=== PATIENT | female | born 1950 | race Caucasian/White ===

== ENCOUNTER 2022-03-06 16:00 | Inpatient (IN) | payer MEDICARE, OTHER ==
[~2022-03-06] VITALS: Ht 167.6 cm; Wt 127.6 kg
[2022-03-06 19:40] VITALS: BP 138/57
[2022-03-06] MEDS ORDERED: DEXTROSE 50% 25 GM / 50ML DISP.SYRIN. IV PRN (20:30)
[2022-03-06] MEDS ORDERED: diphenhydrAMINE 50 MG/ML VIAL IVP PRN (20:30)
[2022-03-06] MEDS ORDERED: ONDANSETRON PF 4 MG/2 ML VIAL. IVP PRN (20:30)
[2022-03-06] MEDS ORDERED: ACETAMINOPHEN 325 MG TABLET. PO PRN (20:30)
[2022-03-06] MEDS ORDERED: SENNOSIDES 8.6 MG TABLET PO PRN (20:30)
[2022-03-06] MEDS ORDERED: DOCUSATE SODIUM 100 MG CAPSULE. PO PRN (20:30)
[2022-03-06] MEDS ORDERED: diphenhydrAMINE HCL 25 MG CAPSULE PO PRN ×2 (20:30)
[2022-03-06] MEDS ORDERED: ZOLPIDEM 5 MG TABLET. PO PRN (20:30)
[2022-03-06] MEDS ORDERED: LORazepam 0.5 MG TABLET PO PRN (20:30)
[2022-03-06] MEDS ORDERED: PROCHLORPERAZINE 10 MG/2 ML VIAL. IV PRN (20:30)
[2022-03-06] MEDS ORDERED: ENOXAPARIN 40 MG/0.4 ML SYRINGE. SQ SCH (21:00)
[2022-03-06] MEDS: guaiFENesin ORAL 200 MG/10 ML LIQUID. PO PRN (21:17)
[2022-03-06] MEDS: BENZONATATE 100 MG CAPSULE. PO SCH (21:17)
[2022-03-06 23:00] VITALS: BP 153/54
[2022-03-07 03:00] VITALS: BP 157/55
[2022-03-07] MEDS ORDERED: CRESTOR5 MG PO (06:32)
[2022-03-07] MEDS ORDERED: PARO40TA3 PO (06:32)
[2022-03-07] MEDS ORDERED: RIVA10TA PO (06:32)
[2022-03-07] MEDS ORDERED: GABA600T7 PO (06:32)
[2022-03-07] MEDS ORDERED: LEVO75TA5 PO (06:32)
[2022-03-07] MEDS ORDERED: ALLO300T PO (06:32)
[2022-03-07] MEDS ORDERED: PANT40TA77 PO (06:32)
[2022-03-07 07:00] VITALS: BP 126/39
[2022-03-07 07:34] LABS: CALCIUM 9.1 mg/dL (8.5-10.1); CREATININE 1.4 mg/dL (0.6-1.0); GFR 37.3; MAGNESIUM 2.1 mg/dL (1.8-2.4); PHOSPHORUS 4.7 mg/dL (2.6-4.7); POTASSIUM 3.6 mmol/L (3.5-5.1)
--- NOTE | 2022-03-07 08:17 | PDOC1 ---
History and Physical Date of Admission Date of Admission DATE: 03/07/22 TIME: 08:16 Identification/Chief Complaint Chief Complaint Sore throat, cough, shortness of breath Source Source: Chart review History of Present Illness History of Present Illness Patient is a 71-year-old female with past medical history COPD not on home oxygen, A. fib, hypothyroidism, who presents to the ED with complaints of sore throat, shortness of breath, fever, weakness for the past few days. Associated cough with productive sputum, and orthopnea. Symptoms worsened yesterday morning so she went to [facility] ER for further evaluation. Left the [facility] ED showed WBC 11.6, BUN 32, creatinine 1.3, BUN/creatinine ratio 25, proBNP 798, troponin 20. Chest x-ray showed mild left lung infiltrates but for evaluations of left lung base. She received broad-spectrum antibiotics and was transferred to [facility] for higher level of care. Here at [facility] she was febrile at 101.5 F and tachycardic. She was admitted for further medical management. Past Medical History Past Medical History COPD, A. fib, hypothyroidism, CHF Past Surgical History Past Surgical History Gastric bypass Past Surgical History: Cholecystectomy Family History Family History CHF, COPD Social History Smoke: Quit ALCOHOL: none Drugs: None Current Medications Current Medications Current Medications Benzonatate (Tessalon Perle) 100 mg [id number] PO Last administered on 03/06/22at 21:17; Start 03/06/22 at 21:00 Guaifenesin (Robitussin) 200 mg PRN Q4HRS PRN PO COUGH Last administered on 03/06/22at 21:17; Start 03/06/22 at 20:30 Sennosides (Senna) 17.2 mg PRN BID PRN PO CONSTIPATION; Start 03/06/22 at 20:30 Docusate Sodium (Colace) 100 mg PRN DAILY PRN PO HARD STOOLS; Start 03/06/22 at 20:30 Ondansetron HCl (Zofran) 4 mg PRN Q6HRS PRN IVP NAUSEA/VOMITING, 1st CHOICE; Start 03/06/22 at 20:30 Dextrose (Dextrose 50%-Water Syringe) 12.5 gm PRN Q15MIN PRN IV SEE COMMENTS; Start 03/06/22 at 20:30 Acetaminophen (Tylenol) 650 mg PRN Q4HRS PRN PO TEMP OVER 100.4F OR MILD PAIN Last administered on 03/07/22at 02:39; Start 03/06/22 at 20:30 Lorazepam (Ativan) 0.5 mg PRN Q6HRS PRN PO ANXIETY / AGITATION; Start 03/06/22 at 20:30 Lorazepam (Ativan Inj) 0.25 mg PRN Q4HRS PRN IV ANXIETY / AGITATION; Start 03/06/22 at 20:30 Prochlorperazine Edisylate (Compazine) 10 mg PRN Q6HRS PRN IV NAUSEA/VOMITING, 2nd CHOICE; Start 03/06/22 at 20:30 Diphenhydramine HCl (Benadryl) 25 mg PRN Q6HRS PRN IVP ITCHING; Start 03/06/22 at 20:30 Diphenhydramine HCl (Benadryl) 25 mg PRN Q6HRS PRN PO ITCHING; Start 03/06/22 at 20:30 Diphenhydramine HCl (Benadryl) 25 mg PRN QHS PRN PO INSOMNIA, 1st CHOICE; Start 03/06/22 at 20:30 Zolpidem Tartrate (Ambien) 2.5 mg PRN QHS PRN PO INSOMNIA, 2nd CHOICE; Start 03/06/22 at 20:30 Enoxaparin Sodium (Lovenox 40mg Syringe) 40 mg Q12H SQ Last administered on 03/06/22at 21:17; Start 03/06/22 at 21:00 Azithromycin 500 mg/Sodium Chloride 250 ml @ 250 mls/hr Q24H IV ; Start 03/07/22 at 16:00 Ceftriaxone Sodium (Rocephin) 1 gm Q24H IVP ; Start 03/07/22 at 15:00 Active Scripts Active Reported Crestor (Rosuvastatin Calcium) 5 Mg Tablet 4 Tab PO DAILY Paroxetine Hcl 40 Mg Tablet 1 Tab PO DAILY Gabapentin 600 Mg Tablet 600 Mg PO BID Levothyroxine Sodium 75 Mcg Tablet 1 Tab PO DAILY Pantoprazole Sodium (Pantoprazole Sodium) 40 Mg Tablet.dr 40 Mg PO DAILYAC Xarelto (Rivaroxaban) 10 Mg Tablet 1 Tab PO DAILY 7 Days Allopurinol 300 Mg Tablet 1 Tab PO DAILY Allergies Allergies: Coded Allergies: Iodinated Contrast Media (Verified Allergy, Intermediate, Unknown, 03/06/22) digoxin (Verified Allergy, Intermediate, 03/07/22) ROS Review of System GENERAL: Fever. No history of weight change. SKIN: No bruising, hair changes or rashes. EYES: No blurred, double or loss of vision. NOSE AND THROAT: Sore throat. No history of nosebleeds. HEART: Denies chest pain, denies palpitations. LUNGS: Productive cough, shortness of breath. Denies hemoptysis, wheezing. GASTROINTESTINAL: Denies nausea, vomiting, abdominal pain. GENITOURINARY: Denies dysuria, frequency, urgency, hematuria. NEUROLOGIC: Denies history of numbness, tingling, tremor or weakness. PSYCHIATRIC: Denies anxiety, denies depression. ENDOCRINE: No history of heat or cold intolerance, polyuria or polydipsia. EXTREMITIES: Denies muscle weakness, joint pain, pain on walking or stiffness. Physical Exam Physical Exam General: Alert, Oriented X3, Cooperative, mild distress. Morbidly obese. HEENT: PERRLA, EOMI Lungs: Tachypneic, bilateral expiratory wheezes Heart: RRR, no jug vein distention Cardiovascular: S1, S2 Abdomen: Normal bowel sounds, Soft, No tenderness Extremities: No clubbing, No cyanosis Skin: No rashes, No significant lesion Neuro: Normal speech, Normal tone, Sensation intact Psych/Mental Status: Mental status NL, Mood NL Vitals Vitals Vital Signs Date Time Temp Pulse Resp B/P (MAP) Pulse Ox O2 Delivery O2 Flow Rate FiO2 03/07/22 07:00 98.4 57 16 126/39 (68) 96 BiPAP/CPAP 98.4 Labs Labs Laboratory Tests Test 03/07/22 05:45 Sodium Level 138 mmol/L (136-145) Potassium Level 3.6 mmol/L (3.5-5.1) Chloride Level 100 mmol/L (98-107) Carbon Dioxide Level 26 mmol/L (21-32) Anion Gap 12 (6-14) Blood Urea Nitrogen 40 mg/dL (7-20) Creatinine 1.4 mg/dL (0.6-1.0) Estimated GFR (Cockcroft-Gault) 37.3 Glucose Level 106 mg/dL (70-99) Calcium Level 9.1 mg/dL (8.5-10.1) Phosphorus Level 4.7 mg/dL (2.6-4.7) Magnesium Level 2.1 mg/dL (1.8-2.4) Laboratory Tests Test 03/07/22 05:45 Sodium Level 138 mmol/L (136-145) Potassium Level 3.6 mmol/L (3.5-5.1) Chloride Level 100 mmol/L (98-107) Carbon Dioxide Level 26 mmol/L (21-32) Anion Gap 12 (6-14) Blood Urea Nitrogen 40 mg/dL (7-20) Creatinine 1.4 mg/dL (0.6-1.0) Estimated GFR (Cockcroft-Gault) 37.3 Glucose Level 106 mg/dL (70-99) Calcium Level 9.1 mg/dL (8.5-10.1) Phosphorus Level 4.7 mg/dL (2.6-4.7) Magnesium Level 2.1 mg/dL (1.8-2.4) Images Images PATIENT: HANG LINDSAY ACCOUNT: [id number] : 1950 LOCATION: ER AGE: 71 SEX: F EXAM STATUS: REG ER ORD. PHYSICIAN: NIRAJ MIRANDA REASON: tachycardia, SOB PROCEDURE: CHEST AP ONLY AP chest. HISTORY: Tachycardia, short of breath AP view was taken of the chest. Heart is upper normal in size. Abdomen obscures the lung bases. There is mild left lung infiltrate. Left lung base is poorly evaluated. PA and lateral views could be of benefit. IMPRESSION: 1. Mild left lung infiltrate. 2. Poor evaluation left lung base. VTE Prophylaxis Ordered VTE Prophylaxis Devices: No VTE Pharmacological Prophylaxi: Yes Assessment/Plan Assessment/Plan Sepsis Acute respiratory failure with hypoxia Acute COPD exacerbation Left-sided community-acquired pneumonia FLAVIO History atrial fibrillation History of hypothyroidism Plan: Continue treatment with Rocephin and azithromycin Duo nebs as needed IV Solu-Medrol, then transition to oral prednisone. Consider consult to pulmonology if her respiratory distress worsens Resume home medications FEN - Cardiac diet PPX - Xarelto FULL CODE/patient names her daughter (Emy Art) as surrogate decision-maker Dispo - inpatient for above Justifications for Admission Other Justification pneumonia, chf exacerbation SHAYNE GONZALEZ MD Mar 07, 2022 08:17
[2022-03-07] MEDS ORDERED: BENZOCAINE/MENTHOL LOZENGE. PO PRN (08:45)
[2022-03-07] MEDS ORDERED: methylPREDNISolone SOD SUCC PF 125 MG/2 ML VIAL. IV ONE (09:00)
[2022-03-07 10:23] LABS: BASO % 1 % (0-3); EOS # 0.1 x10^3/uL (0.0-0.7); EOS % 1 % (0-3); HEMATOCRIT 33.3 % (36.0-47.0); HEMOGLOBIN 10.7 g/dL (12.0-15.5); LYMPH # 1.3 x10^3/uL (1.0-4.8); LYMPH % 20 % (24-48); MEAN CORPUSCULAR HEMOGLOBIN 26 pg (25-35); MEAN CORPUSCULAR HGB CONC 32 g/dL (31-37); MEAN CORPUSCULAR VOLUME 80 fL (79-100); MONO # 0.6 x10^3/uL (0.0-1.1); MONO % 10 % (0-9); NEUT # 4.5 x10^3/uL (1.8-7.7); NEUT % 69 % (31-73); PLATELET COUNT 144 x10^3/uL (140-400); RED BLOOD COUNT 4.18 x10^6/uL (3.50-5.40); RED CELL DISTRIBUTION WIDTH 17.2 % (11.5-14.5); WHITE BLOOD COUNT 6.6 x10^3/uL (4.0-11.0)
[2022-03-07] MEDS: BENZONATATE 100 MG CAPSULE. PO SCH ×3 (10:30→20:29)
[2022-03-07] MEDS: GABAPENTIN 300 MG CAPSULE. PO SCH ×2 (10:30→20:29)
[2022-03-07 11:00] VITALS: BP 122/38
[2022-03-07 11:26] LABS: INFLUENZA A PATIENT NEGATIVE (NEGATIVE); INFLUENZA B PATIENT NEGATIVE (NEGATIVE)
[2022-03-07] MEDS: IPRATRPIUM/ALBUTEROL 0.5/2.5MG 3 ML NEBU. NEB SCH ×3 (12:23→20:00)
[2022-03-07 15:00] VITALS: BP 142/55
[2022-03-07] MEDS ORDERED: cefTRIAXone IV Push 1 GM VIAL. IVP SCH (15:00)
[2022-03-07] MEDS ORDERED: AZITHROMYCIN 500 MG in IV NORMAL SALINE 250ML 250 ML IV SCH (16:00)
[2022-03-07 19:00] VITALS: BP 148/62
[2022-03-07] MEDS: LACTOBACILLUS RHAMNOSUS GG 1 CAPSULE. PO SCH (20:29)
[2022-03-07] MEDS: guaiFENesin ORAL 200 MG/10 ML LIQUID. PO PRN (20:29)
[2022-03-07] MEDS ORDERED: PARoxetine 20 MG TABLET PO ONE (21:00)
[2022-03-07] MEDS ORDERED: ATORVASTATIN CALCIUM 40 MG TABLET. PO SCH (21:00)
[2022-03-07 23:00] VITALS: BP 188/70
[2022-03-08 03:00] VITALS: BP 155/63
[2022-03-08 07:00] VITALS: BP 170/60
[2022-03-08] MEDS: IPRATRPIUM/ALBUTEROL 0.5/2.5MG 3 ML NEBU. NEB SCH ×3 (08:54→15:24)
[2022-03-08] MEDS ORDERED: PARoxetine 20 MG TABLET PO SCH (09:00)
[2022-03-08] MEDS ORDERED: predniSONE 20 MG TABLET PO SCH (09:00)
[2022-03-08 09:01] LABS: BASO % 0 % (0-3); EOS % 0 % (0-3); HEMATOCRIT 34.8 % (36.0-47.0); HEMOGLOBIN 11.2 g/dL (12.0-15.5); LYMPH # 0.9 x10^3/uL (1.0-4.8); LYMPH % 9 % (24-48); MEAN CORPUSCULAR HEMOGLOBIN 26 pg (25-35); MEAN CORPUSCULAR HGB CONC 32 g/dL (31-37); MEAN CORPUSCULAR VOLUME 80 fL (79-100); MONO # 0.6 x10^3/uL (0.0-1.1); MONO % 6 % (0-9); NEUT # 8.6 x10^3/uL (1.8-7.7); NEUT % 86 % (31-73); PLATELET COUNT 187 x10^3/uL (140-400); RED BLOOD COUNT 4.37 x10^6/uL (3.50-5.40); RED CELL DISTRIBUTION WIDTH 17.3 % (11.5-14.5)
[2022-03-08] MEDS: GABAPENTIN 300 MG CAPSULE. PO SCH (09:24)
[2022-03-08] MEDS: LACTOBACILLUS RHAMNOSUS GG 1 CAPSULE. PO SCH (09:24)
[2022-03-08] MEDS: BENZONATATE 100 MG CAPSULE. PO SCH (09:24)
[2022-03-08 09:27] LABS: CREATININE 1.1 mg/dL (0.6-1.0); GFR 49.2; MAGNESIUM 2.3 mg/dL (1.8-2.4); POTASSIUM 3.8 mmol/L (3.5-5.1)
--- NOTE | 2022-03-08 10:18 | PDOC ---
[employer] PROGRESS NOTE Date of Service DOS: DATE: 03/08/22 TIME: 10:14 Chief Complaint Chief Complaint Sepsis Acute respiratory failure with hypoxia Acute COPD exacerbation Left-sided community-acquired pneumonia - possibly gram-negative or gram- positive organism FLAVIO History atrial fibrillation History of hypothyroidism History of Present Illness History of Present Illness 03/08/2022: Patient seen and evaluated bedside. She reports provement in her symptoms, and denies any shortness of breath. Will discharge home oral antibiotics, and follow-up with her PCP. Greater than 30 minutes spent in the management of the discharge of this patient. Vitals/I&O Vitals/I&O: Vital Signs Date Time Temp Pulse Resp B/P (MAP) Pulse Ox O2 Delivery O2 Flow Rate FiO2 03/08/22 08:54 100 Room Air 03/08/22 07:00 96.9 51 18 170/60 (96) 96.9 I & O 03/07/22 03/07/22 03/08/22 15:00 23:00 07:00 Intake Total 120 ml 100 ml Output Total 500 ml Balance 120 ml -400 ml Physical Exam General: Alert, Oriented X3, Cooperative, No acute distress Heart: Regular rate Lungs: Wheezing Abdomen: Soft, No tenderness Extremities: No clubbing, No cyanosis Skin: No rashes, No breakdown Labs Labs: Laboratory Tests Test 03/07/22 10:40 03/08/22 08:20 Coronavirus (COVID-19)(PCR) Not detected (NOT DETECTD) Influenza Type A Antigen Negative (NEGATIVE) Influenza Type B Antigen Negative (NEGATIVE) SARS-CoV-2 Antigen (Rapid) Negative (NEGATIVE) White Blood Count 10.0 x10^3/uL (4.0-11.0) Red Blood Count 4.37 x10^6/uL (3.50-5.40) Hemoglobin 11.2 g/dL (12.0-15.5) Hematocrit 34.8 % (36.0-47.0) Mean Corpuscular Volume 80 fL (79-100) Mean Corpuscular Hemoglobin 26 pg (25-35) Mean Corpuscular Hemoglobin Concent 32 g/dL (31-37) Red Cell Distribution Width 17.3 % (11.5-14.5) Platelet Count 187 x10^3/uL (140-400) Neutrophils (%) (Auto) 86 % (31-73) Lymphocytes (%) (Auto) 9 % (24-48) Monocytes (%) (Auto) 6 % (0-9) Eosinophils (%) (Auto) 0 % (0-3) Basophils (%) (Auto) 0 % (0-3) Neutrophils # (Auto) 8.6 x10^3/uL (1.8-7.7) Lymphocytes # (Auto) 0.9 x10^3/uL (1.0-4.8) Monocytes # (Auto) 0.6 x10^3/uL (0.0-1.1) Eosinophils # (Auto) 0.0 x10^3/uL (0.0-0.7) Basophils # (Auto) 0.0 x10^3/uL (0.0-0.2) Sodium Level 137 mmol/L (136-145) Potassium Level 3.8 mmol/L (3.5-5.1) Chloride Level 100 mmol/L (98-107) Carbon Dioxide Level 26 mmol/L (21-32) Anion Gap 11 (6-14) Blood Urea Nitrogen 43 mg/dL (7-20) Creatinine 1.1 mg/dL (0.6-1.0) Estimated GFR (Cockcroft-Gault) 49.2 Glucose Level 140 mg/dL (70-99) Calcium Level 9.0 mg/dL (8.5-10.1) Magnesium Level 2.3 mg/dL (1.8-2.4) Comment Review of Relevant I have reviewed the following items shirlene (where applicable) has been applied. Medications: Current Medications Medications (Trade) Dose Ordered Sig/Kevin Route PRN Reason Start Time Stop Time Status Last Admin Dose Admin Azithromycin 500 mg/Sodium Chloride 250 ml @ 250 mls/hr Q24H IV 03/07/22 16:00 03/07/22 16:02 Ceftriaxone Sodium (Rocephin) 1 gm Q24H IVP 03/07/22 15:00 03/07/22 14:57 Atorvastatin Calcium (Lipitor) 80 mg QHS PO 03/07/22 21:00 03/07/22 20:29 Albuterol/ Ipratropium (Duoneb) 3 ml RTQID NEB 03/07/22 12:00 03/08/22 08:54 Prednisone (Prednisone) 40 mg DAILY PO 03/08/22 09:00 03/13/22 08:59 03/08/22 09:25 Lactobacillus Rhamnosus (Culturelle) 1 cap BID PO 03/07/22 21:00 03/08/22 09:24 Paroxetine HCl (Paxil) 40 mg DAILY PO 03/08/22 09:00 03/08/22 09:25 Paroxetine HCl (Paxil) 40 mg 1X ONCE PO 03/07/22 21:00 03/07/22 21:01 DC 03/07/22 20:29 Justifications for Admission Other Justification pneumonia, chf exacerbation SHAYNE GONZALEZ MD Mar 08, 2022 10:17
--- NOTE | 2022-03-08 10:19 | PDOC3 ---
Discharge Summary Visit Information Date of Admission: Mar 07, 2022 Date of Discharge: Mar 08, 2022 Brief Hospital Course Allergies Allergies Coded Allergies Type Severity Reaction Last Updated Verified Iodinated Contrast Media Allergy Intermediate Unknown 03/06/22 Yes digoxin Allergy Intermediate 03/07/22 Yes Vital Signs Vital Signs Date Time Temp Pulse Resp B/P (MAP) Pulse Ox O2 Delivery O2 Flow Rate FiO2 03/08/22 08:54 100 Room Air 03/08/22 07:00 96.9 51 18 170/60 (96) 96.9 Lab Results Laboratory Tests Test 03/07/22 05:45 03/07/22 10:01 03/07/22 10:40 03/08/22 08:20 Sodium Level 138 mmol/L (136-145) 137 mmol/L (136-145) Potassium Level 3.6 mmol/L (3.5-5.1) 3.8 mmol/L (3.5-5.1) Chloride Level 100 mmol/L (98-107) 100 mmol/L (98-107) Carbon Dioxide Level 26 mmol/L (21-32) 26 mmol/L (21-32) Anion Gap 12 (6-14) 11 (6-14) Blood Urea Nitrogen 40 mg/dL (7-20) 43 mg/dL (7-20) Creatinine 1.4 mg/dL (0.6-1.0) 1.1 mg/dL (0.6-1.0) Estimated GFR (Cockcroft-Gault) 37.3 49.2 Glucose Level 106 mg/dL (70-99) 140 mg/dL (70-99) Calcium Level 9.1 mg/dL (8.5-10.1) 9.0 mg/dL (8.5-10.1) Phosphorus Level 4.7 mg/dL (2.6-4.7) Magnesium Level 2.1 mg/dL (1.8-2.4) 2.3 mg/dL (1.8-2.4) Procalcitonin 0.58 ng/mL (0.00-0.10) White Blood Count 6.6 x10^3/uL (4.0-11.0) 10.0 x10^3/uL (4.0-11.0) Red Blood Count 4.18 x10^6/uL (3.50-5.40) 4.37 x10^6/uL (3.50-5.40) Hemoglobin 10.7 g/dL (12.0-15.5) 11.2 g/dL (12.0-15.5) Hematocrit 33.3 % (36.0-47.0) 34.8 % (36.0-47.0) Mean Corpuscular Volume 80 fL (79-100) 80 fL (79-100) Mean Corpuscular Hemoglobin 26 pg (25-35) 26 pg (25-35) Mean Corpuscular Hemoglobin Concent 32 g/dL (31-37) 32 g/dL (31-37) Red Cell Distribution Width 17.2 % (11.5-14.5) 17.3 % (11.5-14.5) Platelet Count 144 x10^3/uL (140-400) 187 x10^3/uL (140-400) Neutrophils (%) (Auto) 69 % (31-73) 86 % (31-73) Lymphocytes (%) (Auto) 20 % (24-48) 9 % (24-48) Monocytes (%) (Auto) 10 % (0-9) 6 % (0-9) Eosinophils (%) (Auto) 1 % (0-3) 0 % (0-3) Basophils (%) (Auto) 1 % (0-3) 0 % (0-3) Neutrophils # (Auto) 4.5 x10^3/uL (1.8-7.7) 8.6 x10^3/uL (1.8-7.7) Lymphocytes # (Auto) 1.3 x10^3/uL (1.0-4.8) 0.9 x10^3/uL (1.0-4.8) Monocytes # (Auto) 0.6 x10^3/uL (0.0-1.1) 0.6 x10^3/uL (0.0-1.1) Eosinophils # (Auto) 0.1 x10^3/uL (0.0-0.7) 0.0 x10^3/uL (0.0-0.7) Basophils # (Auto) 0.0 x10^3/uL (0.0-0.2) 0.0 x10^3/uL (0.0-0.2) Coronavirus (COVID-19)(PCR) Not detected (NOT DETECTD) Influenza Type A Antigen Negative (NEGATIVE) Influenza Type B Antigen Negative (NEGATIVE) SARS-CoV-2 Antigen (Rapid) Negative (NEGATIVE) Laboratory Tests Test 03/07/22 10:40 03/08/22 08:20 Coronavirus (COVID-19)(PCR) Not detected (NOT DETECTD) Influenza Type A Antigen Negative (NEGATIVE) Influenza Type B Antigen Negative (NEGATIVE) SARS-CoV-2 Antigen (Rapid) Negative (NEGATIVE) White Blood Count 10.0 x10^3/uL (4.0-11.0) Red Blood Count 4.37 x10^6/uL (3.50-5.40) Hemoglobin 11.2 g/dL (12.0-15.5) Hematocrit 34.8 % (36.0-47.0) Mean Corpuscular Volume 80 fL (79-100) Mean Corpuscular Hemoglobin 26 pg (25-35) Mean Corpuscular Hemoglobin Concent 32 g/dL (31-37) Red Cell Distribution Width 17.3 % (11.5-14.5) Platelet Count 187 x10^3/uL (140-400) Neutrophils (%) (Auto) 86 % (31-73) Lymphocytes (%) (Auto) 9 % (24-48) Monocytes (%) (Auto) 6 % (0-9) Eosinophils (%) (Auto) 0 % (0-3) Basophils (%) (Auto) 0 % (0-3) Neutrophils # (Auto) 8.6 x10^3/uL (1.8-7.7) Lymphocytes # (Auto) 0.9 x10^3/uL (1.0-4.8) Monocytes # (Auto) 0.6 x10^3/uL (0.0-1.1) Eosinophils # (Auto) 0.0 x10^3/uL (0.0-0.7) Basophils # (Auto) 0.0 x10^3/uL (0.0-0.2) Sodium Level 137 mmol/L (136-145) Potassium Level 3.8 mmol/L (3.5-5.1) Chloride Level 100 mmol/L (98-107) Carbon Dioxide Level 26 mmol/L (21-32) Anion Gap 11 (6-14) Blood Urea Nitrogen 43 mg/dL (7-20) Creatinine 1.1 mg/dL (0.6-1.0) Estimated GFR (Cockcroft-Gault) 49.2 Glucose Level 140 mg/dL (70-99) Calcium Level 9.0 mg/dL (8.5-10.1) Magnesium Level 2.3 mg/dL (1.8-2.4) Brief Hospital Course Ms. Vaughn is a 71 old female who presented with community-acquired pneumonia. She was treated with IV antibiotics and steroids. She improved well enough to the point to discharge home with continued outpatient care and close PCP follow- up. Discharge Information Condition at Discharge: Improved Disposition/Orders: D/C to Home Scheduled Allopurinol (Allopurinol) 300 Mg Tablet, 1 TAB PO DAILY for gout, #30 Ref 5 (Reported) Entered as Reported by: ISHAAN GUNN on 03/07/22631 Last Taken: Unknown Dose on 03/06/22 Last Action: HELD on 03/07/22845 by SHAYNE GONZALEZ MD Gabapentin (Gabapentin) 600 Mg Tablet, 600 MG PO BID for NEUROGENIC PAIN, (Reported) Entered as Reported by: ISHAAN GUNN on 03/07/22631 Last Taken: Unknown Dose on 03/06/22 Last Action: Converted on 03/07/22845 by SHAYNE GONZALEZ MD Levothyroxine Sodium (Levothyroxine Sodium) 75 Mcg Tablet, 1 TAB PO DAILY for thyriod, #30 Ref 5 (Reported) Entered as Reported by: ISHAAN GUNN on 03/07/22631 Last Taken: Unknown Dose on 03/06/22 Last Action: HELD on 03/07/22845 by SHAYNE GONZALEZ MD Pantoprazole Sodium (Pantoprazole Sodium ) 40 Mg Tablet.dr, 40 MG PO DAILYAC for GERD, (Reported) Entered as Reported by: ISHAAN GUNN on 03/07/22631 Last Taken: Unknown Dose on 03/06/22 Last Action: HELD on 03/07/22845 by SHAYNE GONZALEZ MD Paroxetine Hcl (Paroxetine Hcl) 40 Mg Tablet, 1 TAB PO DAILY for home med, #30 Ref 5 (Reported) Entered as Reported by: ISHAAN GUNN on 03/07/22631 Last Taken: Unknown Dose on 03/06/22 Last Action: Converted on 03/07/222000 by ISHAAN GUNN Rivaroxaban (Xarelto) 10 Mg Tablet, 1 TAB PO DAILY for blood thinner for 7 Days, #7 Ref 0 (Reported) Entered as Reported by: ISHAAN GUNN on 03/07/22631 Last Taken: Unknown Dose on 03/06/22 Last Action: HELD on 03/07/22845 by SHAYNE GONZALEZ MD Rosuvastatin Calcium (Crestor) 5 Mg Tablet, 4 TAB PO DAILY for home med, #30 Ref 5 (Reported) Entered as Reported by: ISHAAN GUNN on 03/07/22631 Last Taken: Unknown Dose on 03/06/22 Last Action: Converted on 03/07/22845 by SHAYNE GONZALEZ MD Justicifation of Admission Dx: Justifications for Admission: Justification of Admission Dx: Yes SHAYNE GONZALEZ MD Mar 08, 2022 10:19
[2022-03-08] MEDS ORDERED: CEFD300C PO (10:24)
[2022-03-08] MEDS ORDERED: DOXY100T PO (10:24)
[2022-03-08] MEDS ORDERED: PRED20TA PO (10:26)
[2022-03-08] MEDS ORDERED: hydrALAZINE 20 MG/ML VIAL. IVP ONE (10:45)
[2022-03-08 11:00] VITALS: BP 170/60
[2022-03-08 11:16] VITALS: BP 195/59
--- NOTE | 2022-03-08 12:18 | NUR ---
Discharge Note: HANG LINDSAY Discharge instructions and discharge home medications reviewed with Patient and a copy given. All questions have been answered and understanding verbalized. The following instructions and handouts were given: worsening symptoms, medication education, activity and follow up information. Discontinued lines and drains: IV discontinued from right wrist, telemetry removed, and skin intact. Patient discharged to home with self care via private vehicle accompanied by daughter.
== END 2022-03-08 12:41 | disposition home or self-care (01) | DRG 871 ==
LOC: 2 NORTH 16:00
PROVIDERS: ADMIT Internal Medicine; ATTEND Internal Medicine
PROC: 5A09457 Assistance with Respiratory Ventilation, 24-96 Consecutive Hours, Continuous Positive Airway Pressure (ICD-10-PCS; principal; 2022-03-06)
DX: A41.9 Sepsis, unspecified organism (principal); J18.9 Pneumonia, unspecified organism; J96.01 Acute respiratory failure with hypoxia; J44.0 Chronic obstructive pulmonary disease with (acute) lower respiratory infection; J44.1 Chronic obstructive pulmonary disease with (acute) exacerbation; N17.9 Acute kidney failure, unspecified; E03.9 Hypothyroidism, unspecified; I48.91 Unspecified atrial fibrillation; I50.9 Heart failure, unspecified; K21.9 Gastro-esophageal reflux disease without esophagitis; M10.9 Gout, unspecified; Z79.01 Long term (current) use of anticoagulants; Z79.899 Other long term (current) drug therapy; Z82.49 Family history of ischemic heart disease and other diseases of the circulatory system; Z82.5 Family history of asthma and other chronic lower respiratory diseases; Z98.84 Bariatric surgery status; Z20.822 Contact with and (suspected) exposure to COVID-19; Z88.8 Allergy status to other drugs, medicaments and biological substances
CPT/HCPCS: 36415; 80048; 83735; 84100; 84145; 85025; 87428; 94640; 94760; J0360; J0456; J0696; J1650; J2930; J7050; J7512; U0003; G0378; J7030